=== PATIENT | female | born 1980 | race Caucasian/White ===

== ENCOUNTER 2017-01-28 00:29 | Emergency (ER) | payer SELFPAY ==
[~2017-01-28] VITALS: Ht 172.7 cm; Wt 63.0 kg
[~2017-01-28 00:29] MED LIST: CIPROFLOXACN500 MG PO; MACRODANTIN100 MG OR; NO HOME MEDS; TRIMOX500 MG PO
[2017-01-28 00:55] VITALS: BP 153/97
== END 2017-01-28 00:56 | disposition home or self-care (01) | DRG 125 ==
LOC: ED 00:29
PROC: 0HQ1XZZ Repair Face Skin, External Approach (ICD-10-PCS; principal; 2017-01-28)
DX: S01.111A Laceration without foreign body of right eyelid and periocular area, initial encounter (principal); W22.8XXA Striking against or struck by other objects, initial encounter; Y93.89 Activity, other specified; Y92.007 Garden or yard of unspecified non-institutional (private) residence as the place of occurrence of the external cause